=== PATIENT | female | born 1995 | race Caucasian/White ===

== ENCOUNTER 2017-07-11 19:25 | Emergency (ER) | payer BC, OTHER ==
[~2017-07-11] VITALS: Ht 172.7 cm; Wt 54.4 kg
[2017-07-11] MEDS ORDERED: MEDR150D6 (19:39)
[2017-07-11] MEDS ORDERED: LISD40CA3 (19:39)
--- NOTE | 2017-07-11 20:14 | ED Head Injury ---
General Chief Complaint: Laceration Stated Complaint: LAC OVER L EYE Nursing Triage Note: left eye laceration Source: patient, family (MOM) Exam Limitations: other (PT DOES NOT RECALL EVENTS) History of Present Illness Date Seen by Provider: July 11, 2017 Time Seen by Provider: 19:32 Initial Comments PT ARRIVES VIA POV WITH MOM PT WAS AT A [place] AT A FRIEND'S HOUSE AND HAS BEEN DRINKING ALCOHOL, AND REPORTEDLY FELL OUTSIDE, INJURING HER LEFT LATERAL PERIORBITAL AREA--LACERATION IN THIS AREA NO REPORTED LOSS OF CONSCIOUSNESS, BUT PT STATES SHE DOES NOT RECALL EVENT AND HAS NO IDEA WHAT SHE STRUCK WHEN SHE FELL THIS OCCURRED APPROXIMATELY AN HOUR AGO. PT DENIES ANY HEADACHE NO VISION CHANGES, WAS NOT WEARING GLASSES OR CONTACTS NO NAUSEA/VOMITING NO DIZZINESS NO NECK OR BACK PAIN NO EXTREMITY PAIN DENIES ANY OTHER INJURIES OR AREAS OF PAIN PCP: DR. REILLY. IS ALSO A [employer] STUDENT. LIVES AT HOME Allergies and Home Medications Allergies Coded Allergies: Penicillins (Verified Allergy, Unknown, 07/11/17) Sulfa (Sulfonamide Antibiotics) (Verified Allergy, Unknown, 07/11/17) Patient Home Medication List Home Medication List Reviewed: Yes Review of Systems Constitutional: no symptoms reported Eyes: No Symptoms Reported Ears, Nose, Mouth, Throat: no symptoms reported Respiratory: no symptoms reported Cardiovascular: no symptoms reported Gastrointestinal: no symptoms reported Genitourinary: no symptoms reported : No (depo shot) Musculoskeletal: no symptoms reported Skin: see HPI Endocrine: No Symptoms Reported Hematologic/Lymphatic: No Symptoms Reported Past Mnoptto-Hvwttk-Sxjjrz Hx Patient Social History Alcohol Use: Occasionally Uses Recreational Drug Use: No Smoking Status: Never a Smoker 2nd Hand Smoke Exposure: No Recent Foreign Travel: No Contact w/Someone Who Travel: No Recent Infectious Disease Expo: No Recent Hopitalizations: No Immunizations Up To Date Tetanus Booster (TDap): Less than 5yrs PED Vaccines UTD: Yes Seasonal Allergies Seasonal Allergies: No Past Medical History Surgeries: Yes (BMT'S ) Ear Surgery Respiratory: No Cardiac: No Neurological: No : No Genitourinary: No Gastrointestinal: No Musculoskeletal: No Endocrine: No HEENT: Yes (S/P BMT'S) Cancer: No Psychosocial: Yes ADD/ADHD Integumentary: No Blood Disorders: No Physical Exam Vital Signs Vital Signs - First Documented 5/5/18 5/5/18 19:30 20:25 Temp 97.1 Pulse 99 Resp 20 B/P (MAP) 117/78 Pulse Ox 100 O2 Delivery Room Air Capillary Refill : Less Than 3 Seconds General Appearance: WD/WN, no apparent distress, other (PT DOES APPEAR TO BE SOMEWHAT INTOXICATED. GAIT IS UNSTEADY BUT SPEECH IS CLEAR. PT IS SMILING AND TALKATIVE. ) HEENT: PERRL/EOMI, normal ENT inspection, TMs normal, pharynx normal, other (2 CM SUB Q LACERATION TO LEFT LATERAL BROW AREA. EARLY BRUISING AND SWELLING TO AREA. NO ACTIVE BLEEDING AT THIS TIME. ) Neck: non-tender, full range of motion, supple, normal inspection Cardiovascular: regular rate, rhythm, no edema, no JVD, no murmur Respiratory: chest non-tender, normal breath sounds, no respiratory distress, no accessory muscle use Gastrointestinal: normal bowel sounds, non tender, soft, no organomegaly Back: normal inspection, no CVA tenderness, no vertebral tenderness Extremities: normal range of motion, non-tender, normal inspection, no pedal edema, no calf tenderness, normal capillary refill Psychiatric: alert, oriented x 3 Crainal Nerves: normal hearing, normal speech, PERRL Coordination/Gait: abnormal gait Motor/Sensory: no motor deficit, no sensory deficit Skin: normal color, warm/dry, other (LACERATION NOTED ABOVE) [place] Coma Score Best Eye Response: (4) Open Spontaneously Best Verbal Response: (5) Oriented Best Motor Response: (6) Obeys Commands [place] Total: 15 Procedures/Interventions Other Wound Location LEFT LATERAL BROW AREA Wound's Depth, Shape: sub Q (C-SHAPED) Wound Explored: clean Betadine Prep?: No (BETASEPT) Other Closure Supply: Steri Strip 03/12", Mastisol (BETASEPT), Wound Adhesive Progress/Results/Core Measures Results/Orders My Orders Orders - LISA CURRY DO Ct Head/Face/Cervical Wo (07/11/17 19:35) Vital Signs/I&O 07/11/17 07/11/17 19:30 20:25 Temp 97.1 97.1 Pulse 99 99 Resp 20 20 B/P (MAP) 117/78 Pulse Ox 100 O2 Delivery Room Air Room Air Diagnostic Imaging Comments CT HEAD/MAXILLOFACIALS/CERVICAL SPINE--NO ACUTE PROCESS PER RADIOLOGIST REPORT @ 2021 Reviewed: Reviewed by Me Departure Impression Primary Impression: Concussion without loss of consciousness Additional Impressions: Facial laceration Alcohol intoxication Disposition: 01 HOME, SELF-CARE Condition: Stable Departure-Patient Inst. Referrals: NO,LOCAL PHYSICIAN (PCP) Primary Care Physician Patient Instructions: Concussion, Adult (DC), Laceration Repair With Glue (DC) Add. Discharge Instructions: ICE TO AREA AT 20 MINUTE INTERVALS TYLENOL NEEDED FOR PAIN FOR FIRST 24 HOURS, THEN MAY ADD IBUPROFEN NEEDED FOR PAIN LOTS OF CLEAR LIQUIDS--WATER AND GATORADE LEAVE STERI STRIPS AND SKIN GLUE ALONE--WILL FALL OFF ON THEIR OWN IN A FEW DAYS. NO NOT GET WET. NO LOTIONS, CREAMS OR OINTMENTS RETURN TO ER IF PROBLEMS All discharge instructions reviewed with patient and/or family. Voiced understanding. LISA CURRY DO July 11, 2017 20:14
--- NOTE | 2017-07-11 20:19 | Diagnostic Imaging Report ---
PROCEDURE: CT head, face, and cervical spine without contrast. TECHNIQUE: Multiple contiguous axial images were obtained through the head, neck, and facial bones without the use of intravenous contrast. Sagittal and coronal reformations through the cervical spine and facial bones were also performed. INDICATION: Fall, injury. No priors CT head: There is no hemorrhage, hydrocephalus, edema, mass or mass effect. There is no abnormal extra-axial fluid collection. Mastoids and middle ear cavities clear. No calvarial fracture deformity. No acute finding. CT cervical spine: Reconstruction views revealed normal body heights aligned anatomically. No acute or suspicious endplate irregularity. No cervical fracture or paravertebral hematoma. No significant stenosis. Facet relationships normal. The skull base appeared intact. CT facial bones: Nasal bones and bony nasal septum nonacute. There is some leftward septal deviation and spurring chronic. The right frontal sinus is hypoplastic, the left clear. The anterior and posterior sinclair of the frontal sinus is intact. The bony orbits intact. There is no orbital fracture. No post-septal or retrobulbar hematoma. Sphenoid sinuses clear. Maxillary sinus clear. Zygomatic arches and mandible is intact. No bony dislocation of the temporomandibular joints. Mastoid air cells and middle ear cavities clear. IMPRESSION: CT head: No acute abnormality. CT cervical spine: No fracture, stenosis or traumatic malalignment. CT facial bones: No facial fracture or hemo-sinus. Dictated by: Dictated on workstation # [id number]
== END 2017-07-11 20:25 | disposition home or self-care (01) ==
LOC: EDUNIT# 19:25 → ER 19:30
DX: S06.0X0A Concussion without loss of consciousness, initial encounter (principal); S01.112A Laceration without foreign body of left eyelid and periocular area, initial encounter; R40.2142 Coma scale, eyes open, spontaneous, at arrival to emergency department; R40.2242 Coma scale, best verbal response, confused conversation, at arrival to emergency department; R40.2362 Coma scale, best motor response, obeys commands, at arrival to emergency department; F90.9 Attention-deficit hyperactivity disorder, unspecified type; Z88.0 Allergy status to penicillin; Z88.2 Allergy status to sulfonamides; W18.30XA Fall on same level, unspecified, initial encounter; Y92.018 Other place in single-family (private) house as the place of occurrence of the external cause
CPT/HCPCS: 12011; 70450; 70486; 72125

== ENCOUNTER → 2017-11-06 | Outpatient (CLI) | payer BC ==
[~2017-11-06] MED LIST: LISD40CA3; MEDR150D6
--- NOTE | 2017-11-06 12:21 | Diagnostic Imaging Report ---
PROCEDURE: US Gallbladder. TECHNIQUE: Multiple real-time grayscale images were obtained over the right upper quadrant in various projections. INDICATION: Abdominal pain. Liver parenchyma appeared normal. The bile ducts are nondilated. Portal venous flow in the normal direction. The unobstructed right kidney appeared normal. The pancreas is obscured from visualization by bowel gas. The gallbladder is normal. There is no ascites. IMPRESSION: Normal right upper quadrant ultrasound. Dictated by: Dictated on workstation # [id number]
== END ==
LOC: RAD 09:04
PROVIDERS: ATTEND Nurse Practitioner Family
DX: R10.9 Unspecified abdominal pain (principal); R14.0 Abdominal distension (gaseous)
CPT/HCPCS: 76705